=== PATIENT | male | born 1975 | race Caucasian/White ===

== ENCOUNTER 2018-10-17 16:48 | Emergency (ER) | payer SELFPAY ==
[~2018-10-17] VITALS: Ht 172.7 cm; Wt 90.0 kg
[2018-10-17 17:03] VITALS: BP 109/79
== END 2018-10-17 18:03 | disposition left against medical advice (07) ==
LOC: ER 16:48
DX: M54.2 Cervicalgia (principal); M54.9 Dorsalgia, unspecified; Z53.21 Procedure and treatment not carried out due to patient leaving prior to being seen by health care provider